=== PATIENT | female | born 1970 | race Caucasian/White ===

== ENCOUNTER 2021-10-28 12:52 | Emergency (ER) | payer BC, SELFPAY ==
[2021-10-28] VITALS (21 sets, daily range): BP systolic 121–155; BP diastolic 70–92; PULSE 61–86; RESP 14–25; TEMP 36.7; O2SAT 93–100
--- NOTE | ~2021-10-28 | XR_ITS ---
EXAMINATION: XR chest 2V DATE: 10/28/2021 13:10 INDICATION: Shortness of breath. Left-sided chest and arm pain. TECHNIQUE: PA and lateral views of the chest were obtained. COMPARISON: Chest radiograph dated 06/07/2010 FINDINGS: The lungs remain clear with no focal airspace opacities, pulmonary edema, pleural effusion or pneumot horax. The cardiomediastinal silhouette is normal. Unchanged minimal anterior wedging of a couple low er thoracic vertebral bodies. Mild thoracic spondylosis. IMPRESSION: 1. No acute cardiopulmonary disease. Reviewed, dictated and finalized at location A.
--- NOTE | 2021-10-28 12:57 | ECG_ITS ---
Measurements Intervals [place] Rate: 63 P: 59 KS: 147 QRS: 15 QRSD: 98 T: 60 QT: 408 QTc: 420 Interpretive Statements SINUS RHYTHM BASELINE ARTIFACT NONSPECIFIC ST ABNORMALITY BORDERLINE ECG NO PREVIOUS ECG AVAILABLE FOR COMPARISON Electronically Signed On 10-28-2021 17:07:48 CDT by Jeremi Tierney M.D.
[2021-10-28 14:03] LABS: Basophils Absolute Auto 0.1 K/mm3 (0.0-0.1); Basophils Percent Auto 0.9 % (0.2-1.2); Eosinophils Absolute Auto 0.1 K/mm3 (0-0.3); Eosinophils Percent Auto 1.2 % (0-4.4); Hematocrit 46.7 % (37.0-47.0); Hemoglobin 15.4 g/dL (12.0-15.0); Immature Granulocyte Absolute 0.01 K/mm3 (0.00-0.031); Immature Granulocyte Percent A 0.1 % (0-0.5); Lymphocytes Absolute Auto 1.08 K/mm3 (0.9-3.2); Lymphocytes Percent Auto 15.9 % (18.3-44.2); Mean Corpuscular Hemoglobin 32.2 pg (26-34); Mean Corpuscular Volume 97.5 fl (80-100); Mean Platelet Volume 9.5 fl (7.4-10.4); Monocytes Absolute Auto 0.5 K/mm3 (0.1-0.6); Monocytes Percent Auto 7.2 % (2.6-8.5); Neutrophils Absolute Auto 5.1 K/mm3 (1.3-6.7); Neutrophils Percent Auto 74.7 % (45.5-73.1); Platelet Count Result 241 k/mm3 (150-375); Red Blood Count 4.79 M/mm3 (4.2-5.4); Red Cell Distribution Width 13.2 % (11.5-14.5); White Blood Count 6.8 K/mm3 (4.5-10.0)
[2021-10-28 14:18] LABS: Alanine Aminotransferase 19 U/L (4-35); Albumin Level 5.3 g/dL (3.5-5.1); Alkaline Phosphatase 89 U/L (38-126); Anion Gap 11 mmol/L (8-16); Aspartate Amino Transferase 31 U/L (14-36); Bilirubin,Total 0.3 mg/dL (0.2-1.3); Blood Urea Nitrogen 8 mg/dL (7-17); Calcium 9.6 mg/dL (8.4-10.2); Carbon Dioxide 24 mmol/L (22-30); Chloride 104 mmol/L (98-107); Estimated CRCL calculation 79 ml/min; Estimated Glomerular Filt Rate > 60; Glucose 113 mg/dL (65-110); Potassium 3.8 mmol/L (3.4-5.0); Sodium 139 mmol/L (137-145)
[2021-10-28 15:41] LABS: D Dimer 0.46 ug/mL (<0.48)
[2021-10-28 15:58] LABS: Troponin I < 0.012 ng/mL (0.000-0.034)
[2021-10-28] MEDS: KETOROLAC 15 MG/ML VIAL (*BKC) IV PUSH (16:23)
--- NOTE | 2021-10-28 18:44 | ED.SOB ---
HPI - SOB/Dyspnea General Chief Complaint: Shortness of Breath/Dyspnea Stated Complaint: shortness of breath Time Seen by Provider: 10/28/21 15:14 History of Present Illness HPI Narrative: Patient is a 50-year-old female who presents ER with multiple complaints. She reports for the last year she has been feeling fatigued after having what she thinks is COVID-19. She also reports that this will cause her occasional shortness of breath. Over the last 2 to 3 months patient has been having cramping left-sided chest pain does not associate with any exertion. No fevers or chills or sweats. No nausea with this. Last night when laying on her side she felt pain in her left chest and then felt that again much sharper under her armpit. Reports she is helping care for her 2.5-year-old grandson and they are currently doing potty training. She reports that she has to hold him on the potty and this causes her to strain. Patient also reports mild anxiety related to everything and wants to make sure she is all right. Some of her pain is worse with deep breath. Related Data Allergies Allergy/AdvReac Type Severity Reaction Status Date / Time No Known Allergies Allergy Verified 10/28/21 15:15 Review of Systems Review of Systems: All systems reviewed & are unremarkable except as noted in HPI and below Constitutional: Constitutional: Denies chills, Reports fatigue, Denies fever(s) and Denies weakness ENT: Denies nasal congestion and Denies sore throat Cardiovascular: Cardiovascular: Reports chest pain, Denies rapid heart rate and Denies radiating jaw, neck or arm pain Respiratory: Respiratory: Denies cough, Reports dyspnea and Denies wheezing Gastrointestinal: Gastrointestinal: Denies abdominal pain, Denies diarrhea, Denies nausea and Denies vomiting Musculoskeletal: Musculoskeletal: Denies back pain, Denies arthralgias and Reports muscle cramps PMFSH Past Medical History Medical History (Updated 10/28/21 @ 22:12 by Kyaw Loo MD) History of mitral valve prolapse Surgical History Surgical History (Updated 10/28/21 @ 22:12 by Kyaw Loo MD) No pertinent past surgical history Social History Social History Alcohol intake: current Exam Narrative: GENERAL: Well-appearing, well-nourished, and in no acute distress. HEAD: Normocephalic, atraumatic. ENT: Mucous membranes moist. CHEST: Clear to auscultation. No respiratory distress. HEART: Regular rate and rhythm. Normal peripheral pulses. ABDOMEN: Soft, nontender, nondistended. EXTREMITIES: Normal range of motion. No edema. SKIN: Warm, dry, no rash. NEURO: Alert and oriented x3. PSYCH: Normal mood and affect. Course Course Emergency Course: Patient resting comfortably. Encouraged by results. Discharge home recommend establishing care with primary care physician. Vital Signs Vital signs: Vital Signs Temperature 98.0 F 10/28/21 13:46 Pulse Rate 86 10/28/21 13:46 Respiratory Rate 18 10/28/21 13:46 Blood Pressure 155/85 H 10/28/21 13:46 Pulse Oximetry 100 10/28/21 13:46 Temperature 98.0 F 10/28/21 13:46 Pulse Rate 86 10/28/21 19:10 Respiratory Rate 16 10/28/21 19:10 Blood Pressure 130/70 10/28/21 19:10 Pulse Oximetry 99 10/28/21 19:10 MDM - SOB/Dyspnea Lab Data Result diagrams: 10/28/21 13:58 10/28/21 13:58 Labs: Lab Results 10/28/21 10/28/21 10/28/21 Range/Units 13:56 13:56 13:58 WBC 6.8 (4.5-10.0) K/mm3 RBC 4.79 (4.2-5.4) M/mm3 Hgb 15.4 H (12.0-15.0) g/dL Hct 46.7 (37.0-47.0) % MCV 97.5 (80-100) fl MCH 32.2 (26-34) pg MCHC 33.0 (32-36) g/dl RDW 13.2 (11.5-14.5) % Plt Count 241 (150-375) k/mm3 MPV 9.5 (7.4-10.4) fl Immature Gran % (Auto) 0.1 (0-0.5) % Neut % (Auto) 74.7 H (45.5-73.1) % Lymph % (Auto) 15.9 L (18.3-44.2) % [place] % (Auto) 7.2 (2.6-8.5) % Eos % (Auto) 1.2 (0-4.4) % Baso % (Auto) 0.
== END 2021-10-28 19:11 | disposition home or self-care (01) ==
PROVIDERS: Emergency Medicine; Nurse Practitioner Family; Emergency Provider Emergency Medicine
DX: R07.89 Other chest pain (principal); I34.1 Nonrheumatic mitral (valve) prolapse; R94.31 Abnormal electrocardiogram [ECG] [EKG]
CPT/HCPCS: 36415; 71046; 80053; 84443; 84484; 85025; 85380; 93005; 96374; 99284; J1885

== ENCOUNTER 2022-07-07 10:30 | Emergency (ER) | payer BC, SELFPAY ==
[2022-07-07 11:15] VITALS: BP 143/96; PULSE 66; RESP 16; TEMP 35.9; O2SAT 100
--- NOTE | 2022-07-07 11:50 | ED.GENADULT ---
HPI - General Adult General Chief complaint: Upper Respiratory Infection Stated complaint: sorethroat History of Present Illness HPI narrative: 51 y/o female. PMHx MVP. Presents to [facility] clinic today with acute complaints of sore throat, worsening > the past 5 days. No fevers. No dyspnea, dysphagia, involuntary drooling. Daughter also ill at home w/similar issues. No additional acute c/o upon PE Related Data Allergies Allergy/AdvReac Type Severity Reaction Status Date / Time No Known Allergies Allergy Verified 07/07/22 11:25 Review of Systems Review of Systems: CONSTITUTIONAL: Denies fever, chills, sweats. EYES: Denies visual changes, redness, discharge. ENT: Positive rhinorrhea, congestion, sore throat. CARDIOVASCULAR: Denies chest pain, palpitations, edema. RESPIRATORY: Denies dyspnea, wheezing, cough GASTROINTESTINAL: Denies abdominal pain, nausea, vomiting, diarrhea. All other systems have been reviewed: Unless noted remaining ROS Negative. [facility] Past Medical History Medical History History of mitral valve prolapse Surgical History Surgical History No pertinent past surgical history Social History Social History Alcohol intake: current Exam Narrative: GENERAL: This is a well-nourished, well-developed adult, in no apparent distress. HEAD: normocephalic. EYES: Sclera clear/white. EARS: External ears normal, auditory canals clear and without drainage, TMs normal. NOSE: External nose normal. Positive Rhinorrhea, no obstruction, nares patent. THROAT: Mucous membranes moist, posterior pharynx erythematous, with mild exudative change. No gross swelling, uvula midline, palate soft. NECK: Neck supple, non-tender without lymphadenopathy, masses or thyromegaly. CARDIOVASCULAR: Regular rate and rhythm without murmurs, gallops, or rubs. RESPIRATORY: Clear to auscultation. Breath sounds equal bilaterally. No wheezes, rales, or rhonchi. GASTROINTESTINAL: Abdomen soft, non-tender, nondistended. Bowel sounds are active. No guarding. SKIN: warm, intact with no suspicious lesions or rash, good texture and turgor. NEURO: Alert, active, and age appropriate. Course Course Level of Care: Express Care Visit Vital Signs Vital signs: Vital Signs Temperature 35.9 C L 07/07/22 11:15 Pulse Rate 66 07/07/22 11:15 Respiratory Rate 16 07/07/22 11:15 Blood Pressure 143/96 H 07/07/22 11:15 Pulse Oximetry 100 07/07/22 11:15 Oxygen Delivery Room Air 07/07/22 11:15 Temperature 35.9 C L 07/07/22 11:15 Pulse Rate 66 07/07/22 11:15 Respiratory Rate 16 07/07/22 11:15 Blood Pressure 143/96 H 07/07/22 11:15 Pulse Oximetry 100 07/07/22 11:15 Oxygen Delivery Room Air 07/07/22 11:15 Medical Decision Making MDM Narrative Medical decision making narrative: -Rapid Strep POSITIVE. -DC home, stable. -OP Amoxicillin regimen as directed. -OTC remedies prn. -PCP F/U 1WK. Differential Diagnosis Differential Diagnosis: Differential Diagnosis: Consideration of the following conditions may be warranted for the presenting problem, they are not final diagnoses: upper respiratory infection, otitis media, sinusitis, RSV viral infection, PNA, bronchitis, pharyngitis, Streptococcal sore throat, COVID-19, Influenza, and other. Vital Signs Vital Signs: Vital Signs Temperature 35.9 C L 07/07/22 11:15 Pulse Rate 66 07/07/22 11:15 Respiratory Rate 16 07/07/22 11:15 Blood Pressure 143/96 H 07/07/22 11:15 Pulse Oximetry 100 07/07/22 11:15 Oxygen Delivery Room Air 07/07/22 11:15 Temperature 35.9 C L 07/07/22 11:15 Pulse Rate 66 07/07/22 11:15 Respiratory Rate 16 07/07/22 11:15 Blood Pressure 143/96 H 07/07/22 11:15 Pulse Oximetry 100 07/07/22 11:15 Oxygen Delivery Room Air
== END 2022-07-07 12:09 | disposition home or self-care (01) ==
PROVIDERS: Emergency Provider Nurse Practitioner Adult Health
DX: J02.0 Streptococcal pharyngitis (principal); I34.1 Nonrheumatic mitral (valve) prolapse
CPT/HCPCS: 87880; 99213; G0463

== ENCOUNTER 2023-09-09 08:19 | Emergency (ER) | payer BC, SELFPAY ==
[2023-09-09 08:33] VITALS: BP 137/94; PULSE 71; RESP 18; TEMP 36.1; O2SAT 100
--- NOTE | 2023-09-09 08:48 | ED.URI ---
HPI - URI/Sore Throat General Chief Complaint: Upper Respiratory Infection Stated Complaint: congestion,sorethroat Time Seen by Provider: 09/09/23 08:48 Source: patient Mode of arrival: ambulatory Limitations: no limitations History of Present Illness HPI Narrative: Rhonda is a 52-year-old female patient presenting to the clinic today with complaints of sore throat, cough, sinus congestion, and sinus pain since the beginning of July. Reports she is having green, yellow, and brownish [place]razas phlegm and nasal drainage. States a lot of sinus pressure on the left side of her face. MD elicited complaint: sore throat and nasal congestion Related Data Home Medications Medication Instructions Recorded Confirmed cholecalciferol (vitamin D3) 10 10 mcg PO DAILY 09/09/23 09/09/23 mcg (400 unit) capsule Allergies Allergy/AdvReac Type Severity Reaction Status Date / Time No Known Allergies Allergy Verified 09/09/23 08:39 Review of Systems Review of Systems: Pertinent positives per HPI. Patient denies any fever, chills, rash, visual changes, dizziness, shortness of breath, chest pain, palpitations, nausea, vomiting, diarrhea, constipation, abdominal pain, or any urinary issues. [facility] Past Medical History Medical History History of mitral valve prolapse Surgical History Surgical History No pertinent past surgical history Social History Social History Alcohol intake: current Comments At the time of my signature, I reviewed and agree with the nursing past medical, surgical, social, and family history. There is no relevant family history pertinent to the patient complaint. Exam Narrative: General: Well-developed, well nourished, in no apparent distress Head: Normocephalic, atraumatic Eyes: Pupils equally round and reactive to light bilaterally, EOM intact, sclera and conjunctive clear, no discharge, lids normal Ears: TMs intact and clear, ear canals clear, no drainage, grossly hearing normal. Nose: Nares patent, yellow nasal discharge, moderate inflammation, frontal and maxillary sinus tenderness. Mouth: Oral pharynx red without lesions or masses, good dentition, MMM. Postnasal drip Neck: Supple, trachea midline, no enlargement of anterior or posterior cervical nodes, no thyroid masses or goiter palpable. Cardio: Regular rate and rhythm, s1 and s2 normal, no murmur appreciated. Resp: Clear to auscultation bilaterally, no rhonchi, rales, wheezing or rubs Course Course Emergency Course: Portions of this record may have been created with voice recognition software. Level of Care: Express Care Visit Vital Signs Vital signs: Vital Signs Temperature 36.1 C L 09/09/23 08:33 Pulse Rate 71 09/09/23 08:33 Respiratory Rate 18 09/09/23 08:33 Blood Pressure 137/94 H 09/09/23 08:33 Pulse Oximetry 100 09/09/23 08:33 Oxygen Delivery Room Air 09/09/23 08:33 Temperature 36.1 C L 09/09/23 08:33 Pulse Rate 71 09/09/23 08:33 Respiratory Rate 18 09/09/23 08:33 Blood Pressure 137/94 H 09/09/23 08:33 Pulse Oximetry 100 09/09/23 08:33 Oxygen Delivery Room Air 09/09/23 08:33 Vital signs reviewed MDM - URI/Sore Throat MDM Narrative Medical decision making narrative: At the time of visit patient is resting comfortably on the exam table. Patient appears to be nontoxic. Plan: I suspect patient has bacterial rhinosinusitis. Prescription for Augmentin and prednisone was sent to the pharmacy. Supportive measures were discussed with the patient and they voiced understanding discharge instructions and agrees to treatment plan. Return precautions reviewed Differential Diagnosis Differential diagnosis: Likely upper respiratory infection, otitis media, sinusitis, viral infection, bronchitis, influenza, phar
== END 2023-09-09 09:08 | disposition home or self-care (01) ==
PROVIDERS: Emergency Provider Nurse Practitioner Family
DX: J01.90 Acute sinusitis, unspecified (principal); I34.1 Nonrheumatic mitral (valve) prolapse
CPT/HCPCS: 99213; G0463